=== PATIENT | male | born 1975 | race Caucasian/White ===

== ENCOUNTER 2017-10-04 16:05 | Day surgery (SDC) | payer BC ==
[2017-10-04] MEDS: SOD CHLORIDE 0.9% 1,000 ML IV (19:00)
[2017-10-04] MEDS ORDERED: LIDOCAINE 1% (MPF) 30 ML INJ (19:31)
[2017-10-04] MEDS ORDERED: BUPIVACAINE 0.5% (SDV) 30 ML INJ (19:31)
[2017-10-04] MEDS ORDERED: ROCURONIUM 50 MG INJ (19:41)
[2017-10-04] MEDS ORDERED: LIDOCAINE 2% (SDV) 5 ML INJ (19:41)
[2017-10-04] MEDS ORDERED: SUGAMMADEX SODIUM 200 MG/2 ML VIAL IV (19:41)
[2017-10-04] MEDS ORDERED: CEFAZOLIN 1 GM INJ (19:41)
[2017-10-04] MEDS ORDERED: PROPOFOL 200 MG INJ (19:41)
[2017-10-04] MEDS ORDERED: FENTAnyl 250MCG INJ (19:41)
[2017-10-04] MEDS: CEFAZOLIN 1 GM/50 ML (PMX) 50 ML IVPB (19:50)
[2017-10-04] MEDS ORDERED: DIPHENHYDRAMINE 50 MG INJ IV (20:00)
[2017-10-04] MEDS ORDERED: LABETALOL HCL 20MG INJ IV (20:00)
[2017-10-04] MEDS ORDERED: FENTAnyl 50 MCG/ML VIAL IV ×2 (20:00)
[2017-10-04] MEDS ORDERED: MIDAZOLAM 1 MG/ML 2 ML INJ IV (20:00)
[2017-10-04] MEDS ORDERED: ONDANSETRON 4 MG INJ IV ×2 (20:00→21:00)
[2017-10-04] MEDS ORDERED: HYDROmorphONE 1 MG/5 ML IV SYRINGE IV ×3 (20:00)
[2017-10-04] MEDS ORDERED: OXYCODONE/ACETAMINOPHEN (5/325) TAB PO ×3 (20:00→21:00)
[2017-10-04] MEDS ORDERED: METOCLOPRAMIDE 10 MG INJ IV (20:00)
[2017-10-04] MEDS ORDERED: ALBUTEROL 0.083% (NEB) 2.5 MG/3 ML AMP HHN (20:00)
[2017-10-04] MEDS ORDERED: hydrALAzine 20 MG INJ IV (20:00)
[2017-10-04] MEDS ORDERED: EPHEDrine SULFATE 50 MG/5 ML SYG IV (20:00)
[2017-10-04] MEDS ORDERED: KETOROLAC 30 MG INJ IV ×2 (20:00→21:00)
[2017-10-04] MEDS ORDERED: BACITRACIN 0.9 GM OINT (20:24)
[2017-10-04] MEDS: BUPIVACAINE 0.25%/EPI (SDV) 30 ML INJ (20:53)
[2017-10-04] MEDS: MEPERIDINE 25 MG INJ IV (20:59)
[2017-10-04] MEDS ORDERED: IBUPROFEN 600 MG TAB PO (21:00)
[2017-10-04] MEDS ORDERED: morphine 2 MG INJ IV (21:00)
[2017-10-04] MEDS: FENTAnyl 50 MCG/ML VIAL IV (21:27)
[2017-10-04] MEDS: OXYCODONE/ACETAMINOPHEN (5/325) TAB PO (22:18)
== END 2017-10-04 22:25 | disposition home or self-care (01) ==
LOC: SDS 16:05
DX: K64.4 Residual hemorrhoidal skin tags (principal); K64.8 Other hemorrhoids
CPT/HCPCS: 46255; 88304